=== PATIENT | male | born 1955 | race African-American/Black ===

== ENCOUNTER 2017-09-29 01:51 | Inpatient (IN) | payer MEDICAID ==
[~2017-09-29] VITALS: Ht 180.3 cm; Wt 89.4 kg
[2017-09-29] MEDS ORDERED: REGULAR INSULIN 62.5 UNITS in SODIUM CHLORIDE 0.9% 249.375 ML IV PRN ×2 (02:33→03:45)
[2017-09-29 02:42] LABS: HEMATOCRIT 51.3 % (39.2-51.8); WHITE BLOOD COUNT 25.6 x10^3/uL (3.4-10)
[2017-09-29 02:58] LABS: IS PT STATUS REG ER OR PRE ER? YES
[2017-09-29] MEDS ORDERED: SODIUM CHLORIDE 0.9% 1,000ML IVBOLUS ONE (03:00)
[2017-09-29 03:10] LABS: ASPARTATE AMINO TRANSFERASE 13 U/L (15-37); BLOOD UREA NITROGEN 43 mg/dL (7-18)
[2017-09-29 03:12] LABS: PH, VENOUS 7.117 pH (7.320-7.420)
[2017-09-29] MEDS ORDERED: POTASSIUM CHLORIDE 20 MEQ TAB.ER.PRT ONE (03:35)
[2017-09-29] MEDS: SODIUM CHLORIDE 0.9% 1,000 ML IV SCH ×9 (03:45→23:37)
[2017-09-29] MEDS ORDERED: SODIUM CHLORIDE 0.9% 1,000 ML IV SCH (04:00)
[2017-09-29] MEDS ORDERED: ONDANSETRON 2MG/ML, 2ML IVPush PRN (04:00)
[2017-09-29] MEDS ORDERED: POTASSIUM CHLORIDE 20 MEQ TAB.ER.PRT PO ONE ×4 (04:00→23:00)
[2017-09-29] MEDS ORDERED: POTASSIUM CHLORIDE 40 MEQ in SODIUM CHLORIDE 0.9% 500 ML IV ONE (04:00)
[2017-09-29] MEDS ORDERED: DIAZEPAM 5 MG/ML, 10ML VIAL IV PRN (04:00)
[2017-09-29] MEDS ORDERED: morphine SULFATE 10 MG/ML, 1ML IV PRN (04:00)
[2017-09-29 04:50] VITALS: BP 133/78
[2017-09-29] MEDS ORDERED: LEVOFLOXACIN/PMX 500MG/100ML 100 ML IV SCH (05:00)
[2017-09-29] MEDS: ENOXAPARIN 40 MG/0.4 ML SQ SCH (05:27)
[2017-09-29] MEDS: PANTOPRAZOLE 40 MG IV IV SCH (05:28)
[2017-09-29 06:28] LABS: BLOOD UREA NITROGEN 39 mg/dL (7-18)
[2017-09-29 10:36] LABS: BLOOD UREA NITROGEN 34 mg/dL (7-18)
[2017-09-29] MEDS: D5%-0.45% NACL 1,000 ML IV SCH ×6 (10:53→23:40)
[2017-09-29 14:40] LABS: BLOOD UREA NITROGEN 24 mg/dL (7-18)
[2017-09-29] MEDS: REGULAR INSULIN 62.5 UNITS in SODIUM CHLORIDE 0.9% 249.375 ML IV PRN (15:01)
[2017-09-29] MEDS ORDERED: POTASSIUM PHOSPHATE 44 MEQ in SODIUM CHLORIDE 0.9% 500 ML IV ONE (16:00)
[2017-09-29 18:24] LABS: BLOOD UREA NITROGEN 21 mg/dL (7-18)
[2017-09-29 21:36] VITALS: BP 110/68
[2017-09-29 22:27] LABS: BLOOD UREA NITROGEN 16 mg/dL (7-18)
[2017-09-29] MEDS ORDERED: MAGNESIUM SULFATE PMX 2GM/50ML 50 ML IV ONE (23:00)
[2017-09-30] MEDS: REGULAR INSULIN 62.5 UNITS in SODIUM CHLORIDE 0.9% 249.375 ML IV PRN (00:09)
[2017-09-30 02:06] LABS: BLOOD UREA NITROGEN 13 mg/dL (7-18)
[2017-09-30] MEDS: SODIUM CHLORIDE 0.9% 1,000 ML IV SCH ×2 (03:12→03:25)
[2017-09-30] MEDS: ENOXAPARIN 40 MG/0.4 ML SQ SCH (03:25)
[2017-09-30] MEDS: PANTOPRAZOLE 40 MG IV IV SCH (03:25)
[2017-09-30 03:52] VITALS: BP 120/60
[2017-09-30] MEDS ORDERED: VANCOMYCIN IV SCH (04:00)
[2017-09-30] MEDS ORDERED: VANCOMYCIN 1,300 MG in SODIUM CHLORIDE 0.9% 250 ML IVPB SCH (04:00)
[2017-09-30] MEDS ORDERED: D5%-0.9% NACL 1,000 ML IV SCH (04:00)
[2017-09-30] MEDS: PIPERACILLIN/TAZO/PMX 3.375GM 50 ML IV SCH ×3 (04:27→20:33)
[2017-09-30] MEDS ORDERED: POTASSIUM CHLORIDE 40 MEQ in SODIUM CHLORIDE 0.9% 500 ML IV ONE (06:30)
[2017-09-30] MEDS ORDERED: POTASSIUM CHLORIDE 20 MEQ TAB.ER.PRT PO ONE ×3 (06:30→14:00)
[2017-09-30 06:32] LABS: HEMATOCRIT 34.7 % (39.2-51.8); HEMOGLOBIN 11.8 g/dL (13.7-18.0)
[2017-09-30 06:40] LABS: ASPARTATE AMINO TRANSFERASE 10 U/L (15-37); BLOOD UREA NITROGEN 10 mg/dL (7-18)
[2017-09-30] MEDS ORDERED: VANCOMYCIN PER PHARMACY MC PRN (09:30)
[2017-09-30] MEDS ORDERED: PHARMACOKINETIC MONITORING MC PRN (09:30)
[2017-09-30] MEDS ORDERED: PHARMACOKINETIC CONSULTATION MC ONE (09:30)
[2017-09-30 10:25] LABS: BLOOD UREA NITROGEN 8 mg/dL (7-18)
[2017-09-30] MEDS ORDERED: INSULIN DETEMIR 100 UNITS/ML, PEN ONE (10:25)
[2017-09-30] MEDS: INSULIN DETEMIR 100 UNITS/ML, PEN SQ-INSULIN SCH ×2 (10:30→20:42)
[2017-09-30] MEDS: INSULIN ASPART 100 UNITS/ML, PEN SQ-INSULIN SCH ×3 (11:00→20:46)
[2017-09-30 11:06] LABS: IS PT STATUS REG ER OR PRE ER? NO
[2017-09-30] MEDS ORDERED: POTASSIUM PHOSPHATE 44 MEQ in SODIUM CHLORIDE 0.9% 500 ML IV ONE ×2 (14:00→22:00)
[2017-09-30 16:15] LABS: BLOOD UREA NITROGEN 6 mg/dL (7-18)
[2017-09-30] MEDS: VANCOMYCIN 1,500 MG in SODIUM CHLORIDE 0.9% 250 ML IV SCH (16:52)
[2017-09-30 19:00] VITALS: BP 109/75
[2017-09-30] MEDS ORDERED: SODIUM PHOSPHATE 30 MMOL in SODIUM CHLORIDE 0.9% 500 ML IV ONE (23:30)
[2017-10-01 02:01] VITALS: BP 110/66
[2017-10-01] MEDS: PIPERACILLIN/TAZO/PMX 3.375GM 50 ML IV SCH ×2 (03:37→12:40)
[2017-10-01] MEDS ORDERED: D5%-0.9% NACL 1,000 ML IV SCH (04:00)
[2017-10-01] MEDS: PANTOPRAZOLE 40 MG IV IV SCH (04:10)
[2017-10-01] MEDS: VANCOMYCIN 1,500 MG in SODIUM CHLORIDE 0.9% 250 ML IV SCH (04:10)
[2017-10-01] MEDS: ENOXAPARIN 40 MG/0.4 ML SQ SCH (04:10)
[2017-10-01 06:01] LABS: HEMATOCRIT 33.3 % (39.2-51.8); HEMOGLOBIN 11.8 g/dL (13.7-18.0); WHITE BLOOD COUNT 9.3 x10^3/uL (3.4-10)
[2017-10-01 06:14] LABS: BLOOD UREA NITROGEN 4 mg/dL (7-18)
[2017-10-01 06:15] LABS: ASPARTATE AMINO TRANSFERASE 12 U/L (15-37)
[2017-10-01 08:20] VITALS: BP 105/70
[2017-10-01] MEDS: INSULIN ASPART 100 UNITS/ML, PEN SQ-INSULIN SCH ×4 (08:35→20:29)
[2017-10-01] MEDS: POTASSIUM CHLORIDE 20 MEQ TAB.ER.PRT PO SCH ×2 (08:35→18:00)
[2017-10-01] MEDS ORDERED: SODIUM PHOSPHATE 20 MMOL in SODIUM CHLORIDE 0.9% 500 ML IV ONE (12:00)
[2017-10-01] MEDS: INSULIN DETEMIR 100 UNITS/ML, PEN SQ-INSULIN SCH ×2 (12:36→20:29)
[2017-10-01 13:23] LABS: BLOOD UREA NITROGEN 4 mg/dL (7-18)
[2017-10-01] MEDS ORDERED: POTASSIUM CHLORIDE 20 MEQ TAB.ER.PRT PO ONE (14:30)
[2017-10-01 15:10] VITALS: BP 114/72
[2017-10-01 19:11] VITALS: BP 105/64
[2017-10-02 01:40] VITALS: BP 122/79
[2017-10-02] MEDS: ENOXAPARIN 40 MG/0.4 ML SQ SCH (03:48)
[2017-10-02 05:18] LABS: BLOOD UREA NITROGEN 3 mg/dL (7-18)
[2017-10-02] MEDS: INSULIN ASPART 100 UNITS/ML, PEN SQ-INSULIN SCH ×4 (07:00→20:45)
[2017-10-02 08:16] VITALS: BP 119/70
[2017-10-02] MEDS: POTASSIUM CHLORIDE 20 MEQ TAB.ER.PRT PO SCH ×3 (09:33→20:44)
[2017-10-02] MEDS: PANTOPROZOLE 40MG TABLET PO SCH (09:33)
[2017-10-02] MEDS: INSULIN DETEMIR 100 UNITS/ML, PEN SQ-INSULIN SCH ×2 (11:53→20:44)
[2017-10-02 12:59] LABS: POTASSIUM,URINE RANDOM 14 mmol/L
[2017-10-02 13:00] VITALS: BP 116/79
[2017-10-02 20:00] VITALS: BP 120/78
[2017-10-02 22:46] VITALS: BP 120/78
[2017-10-03 02:10] VITALS: BP 114/70
[2017-10-03 05:21] LABS: BLOOD UREA NITROGEN 4 mg/dL (7-18)
[2017-10-03] MEDS: ENOXAPARIN 40 MG/0.4 ML SQ SCH (05:23)
[2017-10-03 06:52] VITALS: BP 116/78
[2017-10-03] MEDS ORDERED: MAGNESIUM SULFATE PMX 4GM/100M 100 ML IV ONE (08:00)
[2017-10-03 08:08] LABS: OCCBLD OBC PASS
[2017-10-03] MEDS: PANTOPROZOLE 40MG TABLET PO SCH (08:46)
[2017-10-03] MEDS: INSULIN ASPART 100 UNITS/ML, PEN SQ-INSULIN SCH ×4 (08:46→20:37)
[2017-10-03] MEDS: POTASSIUM CHLORIDE 20 MEQ TAB.ER.PRT PO SCH ×3 (08:46→20:36)
[2017-10-03] MEDS: INSULIN DETEMIR 100 UNITS/ML, PEN SQ-INSULIN SCH ×2 (10:23→20:37)
[2017-10-03] MEDS ORDERED: SODIUM CHLORIDE 0.9% 1,000 ML IV SCH (16:00)
[2017-10-03 16:56] VITALS: BP 118/75
[2017-10-03] MEDS: SODIUM CHLORIDE 0.9% 1,000 ML IV SCH (17:14)
[2017-10-03 19:53] VITALS: BP 126/86
[2017-10-04 01:31] VITALS: BP 127/72
[2017-10-04] MEDS: ENOXAPARIN 40 MG/0.4 ML SQ SCH (04:10)
[2017-10-04 05:45] LABS: HEMATOCRIT 31.7 % (39.2-51.8); HEMOGLOBIN 10.8 g/dL (13.7-18.0); WHITE BLOOD COUNT 10.7 x10^3/uL (3.4-10)
[2017-10-04 05:53] LABS: BLOOD UREA NITROGEN 4 mg/dL (7-18)
[2017-10-04 06:02] LABS: ASPARTATE AMINO TRANSFERASE 19 U/L (15-37); FERRITIN 306.7 ng/mL (26-388); TOTAL IRON BINDING CAPACITY 232 mcg/dL (250-450)
[2017-10-04] MEDS: INSULIN ASPART 100 UNITS/ML, PEN SQ-INSULIN SCH ×4 (07:00→21:33)
[2017-10-04] MEDS: PANTOPROZOLE 40MG TABLET PO SCH (08:23)
[2017-10-04] MEDS: POTASSIUM CHLORIDE 20 MEQ TAB.ER.PRT PO SCH (08:24)
[2017-10-04] MEDS: INSULIN DETEMIR 100 UNITS/ML, PEN SQ-INSULIN SCH ×2 (08:25→21:34)
[2017-10-04 09:13] VITALS: BP 138/97
[2017-10-04] MEDS: SODIUM CHLORIDE 0.9% 1,000 ML IV SCH (12:00)
[2017-10-04] MEDS: metroNIDAZOLE 500 MG TABLET PO SCH ×2 (13:46→21:33)
[2017-10-04 15:00] VITALS: BP 130/85
[2017-10-04 18:38] VITALS: BP 129/72
[2017-10-05 02:00] VITALS: BP 120/66
[2017-10-05] MEDS: metroNIDAZOLE 500 MG TABLET PO SCH ×4 (03:20→20:56)
[2017-10-05] MEDS: ENOXAPARIN 40 MG/0.4 ML SQ SCH (03:21)
[2017-10-05] MEDS: SODIUM CHLORIDE 0.9% 1,000 ML IV SCH (05:48)
[2017-10-05 06:06] LABS: BLOOD UREA NITROGEN 6 mg/dL (7-18)
[2017-10-05] MEDS: INSULIN ASPART 100 UNITS/ML, PEN SQ-INSULIN SCH ×4 (07:00→20:57)
[2017-10-05 08:39] VITALS: BP 132/68
[2017-10-05] MEDS: POTASSIUM CHLORIDE 20 MEQ TAB.ER.PRT PO SCH (10:09)
[2017-10-05] MEDS: INSULIN DETEMIR 100 UNITS/ML, PEN SQ-INSULIN SCH ×2 (10:09→20:57)
[2017-10-05] MEDS: PANTOPROZOLE 40MG TABLET PO SCH (10:09)
[2017-10-05 16:00] VITALS: BP 132/80
[2017-10-05 20:00] VITALS: BP 126/76
[2017-10-06 02:00] VITALS: BP 137/78
[2017-10-06] MEDS: metroNIDAZOLE 500 MG TABLET PO SCH ×4 (02:59→20:29)
[2017-10-06] MEDS: SODIUM CHLORIDE 0.9% 1,000 ML IV SCH (04:00)
[2017-10-06] MEDS: ENOXAPARIN 40 MG/0.4 ML SQ SCH (04:14)
[2017-10-06] MEDS: INSULIN ASPART 100 UNITS/ML, PEN SQ-INSULIN SCH ×4 (07:00→20:30)
[2017-10-06 07:51] VITALS: BP 144/79
[2017-10-06] MEDS: PANTOPROZOLE 40MG TABLET PO SCH (10:17)
[2017-10-06] MEDS: POTASSIUM CHLORIDE 20 MEQ TAB.ER.PRT PO SCH (10:17)
[2017-10-06] MEDS: INSULIN DETEMIR 100 UNITS/ML, PEN SQ-INSULIN SCH ×2 (10:18→22:00)
[2017-10-06 13:48] VITALS: BP 121/84
[2017-10-06 20:00] VITALS: BP 110/62
[2017-10-07 02:00] VITALS: BP 117/53
[2017-10-07] MEDS: ENOXAPARIN 40 MG/0.4 ML SQ SCH (03:26)
[2017-10-07] MEDS: metroNIDAZOLE 500 MG TABLET PO SCH ×4 (03:26→21:04)
[2017-10-07] MEDS: SODIUM CHLORIDE 0.9% 1,000 ML IV SCH ×2 (05:00→23:53)
[2017-10-07] MEDS: INSULIN ASPART 100 UNITS/ML, PEN SQ-INSULIN SCH ×4 (07:00→21:05)
[2017-10-07 08:00] VITALS: BP 119/69
[2017-10-07] MEDS: PANTOPROZOLE 40MG TABLET PO SCH (10:26)
[2017-10-07] MEDS: POTASSIUM CHLORIDE 20 MEQ TAB.ER.PRT PO SCH (10:26)
[2017-10-07] MEDS: INSULIN DETEMIR 100 UNITS/ML, PEN SQ-INSULIN SCH ×2 (10:26→21:05)
[2017-10-07 12:45] VITALS: BP 131/80
[2017-10-07] MEDS ORDERED: METF500T4 PO (13:52)
[2017-10-07] MEDS ORDERED: METR500T PO (13:52)
[2017-10-07] MEDS ORDERED: POTA20TA6 PO (13:52)
[2017-10-07 20:52] VITALS: BP 131/78
[2017-10-08 00:18] VITALS: BP 127/64
[2017-10-08] MEDS: metroNIDAZOLE 500 MG TABLET PO SCH ×2 (03:42→08:52)
[2017-10-08] MEDS: ENOXAPARIN 40 MG/0.4 ML SQ SCH (03:42)
[2017-10-08] MEDS: INSULIN ASPART 100 UNITS/ML, PEN SQ-INSULIN SCH ×2 (07:00→11:05)
[2017-10-08 08:00] VITALS: BP 152/67
[2017-10-08] MEDS: PANTOPROZOLE 40MG TABLET PO SCH (08:53)
[2017-10-08] MEDS: POTASSIUM CHLORIDE 20 MEQ TAB.ER.PRT PO SCH (08:53)
[2017-10-08] MEDS: INSULIN DETEMIR 100 UNITS/ML, PEN SQ-INSULIN SCH (08:59)
== END 2017-10-08 15:07 | disposition home health service (06) | DRG 871 ==
LOC: ED 04:13 → EDIP 04:19 → CCU 04:53 → 4WST 09-30 18:52
PROVIDERS: ADMIT Family Medicine; ATTEND Family Medicine
DX: A41.9 Sepsis, unspecified organism (principal); E10.10 Type 1 diabetes mellitus with ketoacidosis without coma; A04.72 Enterocolitis due to Clostridium difficile, not specified as recurrent; G93.41 Metabolic encephalopathy; E87.1 Hypo-osmolality and hyponatremia; W06.XXXA Fall from bed, initial encounter; E83.39 Other disorders of phosphorus metabolism; E83.42 Hypomagnesemia; E86.1 Hypovolemia; E87.6 Hypokalemia; F11.10 Opioid abuse, uncomplicated; F17.200 Nicotine dependence, unspecified, uncomplicated; I10 Essential (primary) hypertension; I35.8 Other nonrheumatic aortic valve disorders; E86.0 Dehydration; Z79.4 Long term (current) use of insulin; Y93.89 Activity, other specified; Y92.092 Bedroom in other non-institutional residence as the place of occurrence of the external cause; Y99.8 Other external cause status
CPT/HCPCS: 36415; 71010; 80048; 80053; 81003; 82010; 82088; 82140; 82272; 82436; 82533; 82728; 82803; 82962; 83036; 83540; 83550; 83690; 83735; 83930; 83935; 84100; 84133; 84244; 84300; 84443; 84484; 85025; 87040; 87081; 87086; 87324; 93005; 93306; 96361; 96365; J1650; J1815; J1956; J2405; J2543; J3360; J3370; J3480; J7042; C9113; J3475; J7030; J7040; J7050